=== PATIENT | male | born 1980 | race African-American/Black ===

== ENCOUNTER 2017-03-11 06:14 | Emergency (ER) | payer SELFPAY ==
[~2017-03-11] VITALS: Ht 175.3 cm; Wt 99.8 kg
--- NOTE | 2017-03-11 06:14 | NUR ---
PT PLACED IN BED 10.
--- NOTE | 2017-03-11 06:15 | NUR ---
Pt actively hallucinating via auditory. Pt talking to voices not present. Spontaneously and occasionally screaming out obscenities to voices. Pt is restless. Pt is not lashing out at staff, nor threatening staff. Pt is redirected with moderate effort. Instructing staff to approach pt in non-confrontational manor as not to escalate pt.
[2017-03-11 06:20] VITALS: BP 162/100
[2017-03-11] MEDS ORDERED: diphenhydrAMINE 50 MG/ML VIAL IM ONE ×2 (06:20→06:40)
[2017-03-11] MEDS ORDERED: HALOPERIDOL IM 5 MG/ML VIAL IM ONE (06:20)
[2017-03-11] MEDS ORDERED: diphenhydrAMINE 50 MG/ML VIAL ONE (06:32)
[2017-03-11] MEDS ORDERED: HALOPERIDOL IM 5 MG/ML VIAL ONE (06:33)
--- NOTE | 2017-03-11 07:20 | NUR ---
PT STAYING IN BED, BEDSIDE MONITOR SHOWS ST, NO S/S OF RESPIRATORY DISTRESS NOTED. PT MUMBLING ALL THE TIME, ASKED PT " WHAT ARE YOU SAYING?" PT DOES NOT ANSWER.
[2017-03-11 08:12] LABS: BASOPHILS # (AUTO) 0.1 K/uL (0.00-0.22); BASOPHILS % (AUTO) 1.7 % (0.0-2.0); EOSINOPHILS % (AUTO) 0.2 % (0.0-4.0); HEMATOCRIT 44.1 % (36-52); HEMOGLOBIN 14.8 g/dL (12.0-18.0); LYMPHOCYTES # (AUTO) 0.6 K/uL (2.0-11.5); LYMPHOCYTES % (AUTO) 10.3 % (20.5-51.1); MEAN CORPUSCULAR HEMOGLOBIN 29 pg (27-31); MEAN CORPUSCULAR HGB CONC 34 g/dL (33-37); MEAN CORPUSCULAR VOLUME 85 fL (80-94); MONOCYTES # (AUTO) 0.4 K/uL (0.8-1.0); MONOCYTES % (AUTO) 6.3 % (1.7-9.3); NEUTROPHILS # (AUTO) 4.6 K/uL (1.8-7.7); NEUTROPHILS % (AUTO) 81.5 % (42.2-75.2); PLATELET COUNT (AUTO) 273 K/uL (140-450); RED CELL DISTRIBUTION WIDTH 12.4 % (11.6-13.7); WHITE BLOOD COUNT (AUTO) 5.7 K/uL (4.8-10.8)
[2017-03-11 08:27] LABS: BARBITURATE, URINE NEG. ng/ml (NEG <=200); BENZODIAZEPINE, URINE POS. ng/mL (NEG <=200); CANNABINOID, URINE NEG. ng/mL (NEG <=50); COCAINE, URINE NEG. ng/mL (NEG <=300); OPIATE, URINE NEG. ng/mL (NEG <=2000); PHENCYCLIDINE SCREEN,URINE NEG. ng/mL (NEG <=25)
--- NOTE | 2017-03-11 08:30 | NUR ---
PT SLEEPING IN BED, BEDSIDE MONITOR SHOWS SR AT THIS TIME. NO S/S OF RESPIRATORY DISTRESS NOTED.
[2017-03-11 08:31] LABS: PROTHROMBIN TIME 11.3 secs (10.8-13.4)
[2017-03-11 08:34] LABS: ALBUMIN 4.2 g/dL (3.4-5.0); ANION GAP 15.4 (8-16); ASPARTATE AMINOTRANSFERASE 37 U/L (15-37); CARBON DIOXIDE 22.7 mmol/L (21-32); CHLORIDE 104 mmol/L (98-107); GLUCOSE 119 mg/dL (74-106); POTASSIUM 3.1 mmol/L (3.5-5.1); SODIUM SERUM 139 mmol/L (136-145); TOTAL BILIRUBIN 0.5 mg/dL (0.0-1.0); UREA NITROGEN, BLOOD 8 mg/dL (7-18)
[2017-03-11 08:39] LABS: ACETAMINOPHEN < 0.5 ug/ml (10-30); SALICYLATE < 2.8 mg/dL (2.8-20.0)
[2017-03-11] MEDS ORDERED: POTASSIUM CHLORIDE 10 MEQ TABER PO ONE (08:55)
[2017-03-11 09:03] LABS: CREATININE 1.2 mg/dL (0.7-1.3); GFR ARICAN-AMERICAN 88 mL/min (>90)
[2017-03-11 09:15] VITALS: BP 140/90
--- NOTE | 2017-03-11 09:15 | NUR ---
Patient discharged with v/s stable. Written and verbal after care instructions given and explained. Patient alert, oriented and verbalized understanding of instructions. Ambulatory with steady gait. All questions addressed prior to discharge. ID band removed. Patient advised to follow up with PMD. Rx of VALIUM given. Patient educated on indication of medication including possible reaction and side effects. Opportunity to ask questions provided and answered.
== END 2017-03-11 09:15 | disposition home or self-care (01) ==
LOC: MED 06:14
DX: F41.0 Panic disorder [episodic paroxysmal anxiety] (principal); R03.0 Elevated blood-pressure reading, without diagnosis of hypertension
CPT/HCPCS: 80053; 80305; 85025; 85610; 93005; 96372; 99285; G0480; G0482; J1200; J1630

== ENCOUNTER 2023-09-04 22:17 | Inpatient (IN) | payer OTHER ==
[~2023-09-04] VITALS: Ht 185.4 cm; Wt 111.6 kg
[~2023-09-04 22:17] MED LIST: ATOR20TA40 PO; DILT120C95 PO; GLIP5TAB22 PO; LANTUS SUBQ; LISI10TA30 PO; METF-713 PO; POTA10TA70 PO
[2023-09-04 22:33] VITALS: BP 224/198; PULSE 129; RESP 14; TEMP 97.1; O2SAT 99
[2023-09-04 23:06] LABS: BASOPHILS % (AUTO) 0.8 % (0.0-2.0); EOSINOPHILS # (AUTO) 0.1 K/uL (0-0.4); EOSINOPHILS % (AUTO) 2.2 % (0.0-4.0); HEMATOCRIT 44.6 % (36-52); HEMOGLOBIN 15.7 g/dL (12.0-18.0); LYMPHOCYTES # (AUTO) 1.6 K/uL (2.0-11.5); LYMPHOCYTES % (AUTO) 29.6 % (20.5-51.1); MEAN CORPUSCULAR HEMOGLOBIN 30 pg (27-31); MEAN CORPUSCULAR HGB CONC 35 g/dL (33-37); MEAN CORPUSCULAR VOLUME 84.2 fL (80-94); MONOCYTES # (AUTO) 0.3 K/uL (0.8-1.0); MONOCYTES % (AUTO) 6.1 % (1.7-9.3); NEUTROPHILS # (AUTO) 3.3 K/uL (1.8-7.7); NEUTROPHILS % (AUTO) 61.3 % (42.2-75.2); PLATELET COUNT (AUTO) 221 K/uL (140-450); RED CELL DISTRIBUTION WIDTH 14.1 % (11.6-13.7); WHITE BLOOD COUNT (AUTO) 5.5 K/uL (4.8-10.8)
[2023-09-04] MEDS: NACL 0.9% 1,000 ML IV ONE ×2 (23:07→23:11)
[2023-09-04] MEDS: ONDANSETRON 4 MG/2 ML VIAL IVP ONE (23:07)
[2023-09-04] MEDS: CLONIDINE HYDROCHLORIDE 0.1 MG TAB PO ONE (23:07)
[2023-09-04 23:26] LABS: APPEARANCE,URINE CLEAR (CLEAR); BILIRUBIN,URINE NEGATIVE (NEGATIVE); BLOOD, URINE 1+ (NEGATIVE); COLOR,URINE YELLOW (YELLOW); LEUKOCYTE ESTERASE ,URINE NEGATIVE (NEGATIVE); NITRITE, URINE NEGATIVE (NEGATIVE); PH,URINE 5.5 (5.0-9.0); PROTEIN,URINE 1+ (NEGATIVE); UGLUCOSE 3+ (NEGATIVE); UROBILINOGEN,URINE 0.2 EU/dL (0.2 - 1)
[2023-09-04 23:31] LABS: BACTERIA,URINE 10-30 (MOD) /HPF (None Seen); MUCUS,URINE 1+ /LPF (None Seen); RBC,URINE 0-5 /HPF (0-5); SQUAMOUS EPITHELIAL CELL,UR 0-3 (FEW) /LPF (0-3 (FEW)); WBC,URINE 0-5 /HPF (0-5)
[2023-09-04 23:36] LABS: ALANINE AMINOTRANSFERASE 42 U/L (12-78); ALBUMIN 3.9 g/dL (3.4-5.0); ALKALINE PHOSPHATASE 102 U/L (50-136); ANION GAP 22.1 (8-16); ASPARTATE AMINOTRANSFERASE 15 U/L (15-37); CALCIUM 9.9 mg/dL (8.5-10.1); CARBON DIOXIDE 21.3 mmol/L (21-32); CHLORIDE 90 mmol/L (98-107); GFR ARICAN-AMERICAN 111 mL/min (>90); GFR NON ARICAN-AMERICAN 91 mL/min (>90); LIPASE 21 U/L (16-77); POTASSIUM 3.4 mmol/L (3.5-5.1); SODIUM SERUM 130 mmol/L (136-145); TOTAL BILIRUBIN 0.6 mg/dL (0.0-1.0); UREA NITROGEN, BLOOD 13 mg/dL (7-18)
[2023-09-04 23:45] LABS: GLUCOSE 498 mg/dL (74-106)
[2023-09-04] MEDS ORDERED: POTASSIUM CHLORIDE 10 MEQ TABER PO ONE (23:50)
[2023-09-04] MEDS ORDERED: cefTRIAXone 1,000 MG VIAL ONE (23:59)
[2023-09-05] MEDS ORDERED: CLONIDINE HYDROCHLORIDE 0.1 MG TAB PO ONE (00:15)
[2023-09-05] MEDS: POTASSIUM CHLORIDE 10 MEQ TABER PO ONE ×3 (00:17→23:39)
[2023-09-05] MEDS: NACL 0.9% 1,000 ML IV ONE (00:17)
[2023-09-05] MEDS: INSULIN REGULAR, HUMAN 100 UNIT/ML VIAL SUBQ ONE (00:22)
[2023-09-05] MEDS: KCL 20 MEQ IN 100 mL PREMIX 100 ML IV ONE (00:22)
[2023-09-05] MEDS ORDERED: CLONIDINE HYDROCHLORIDE 0.1 MG TAB ONE (01:03)
[2023-09-05 01:09] LABS: LACTIC ACID 1.1 mmol/L (0.4-2.0)
[2023-09-05] MEDS: INSULIN LANTUS 100 UNITS/ML 10 ML VIAL SUBQ SCH ×4 (01:40→23:41)
[2023-09-05] MEDS ORDERED: DEXTROSE 50% 50 ML SYR IVP PRN ×2 (01:40→17:25)
[2023-09-05 02:25] VITALS: BP 179/116; PULSE 101; PULSE 98; RESP 18; TEMP 97.4; O2SAT 98; O2SAT 99
[2023-09-05] MEDS: hydrALAZINE 20 MG/ML VIAL IVP SCH (02:38)
[2023-09-05] MEDS: BLOOD GLUCOSE MONITORING 1 DEV DEV FS SCH ×2 (02:43→21:53)
[2023-09-05] MEDS: INSULIN LISPRO SLIDING SCALE 100 UNITS/ML VIAL SUBQ PRN ×2 (02:48→20:44)
[2023-09-05] MEDS: NACL 0.9% 1,000 ML IV SCH (06:30)
[2023-09-05] MEDS: INSULIN LISPRO 100 UNITS/ML VIAL SUBQ SCH ×2 (06:51→14:01)
[2023-09-05 08:00] VITALS: BP 165/101; PULSE 105; RESP 18; RESP 20; TEMP 98.2; O2SAT 96
[2023-09-05] MEDS: ENOXAPARIN 40 MG/0.4 ML SYR SUBQ SCH (09:00)
[2023-09-05] MEDS ORDERED: INSULIN LANTUS 100 UNITS/ML 10 ML VIAL SUBQ SCH (11:55)
[2023-09-05 12:00] VITALS: BP 138/83; PULSE 114; RESP 20; TEMP 98; O2SAT 98
[2023-09-05 12:55] LABS: BASOPHILS % (AUTO) 0.4 % (0.0-2.0); EOSINOPHILS # (AUTO) 0.1 K/uL (0-0.4); EOSINOPHILS % (AUTO) 1.8 % (0.0-4.0); HEMATOCRIT 42.7 % (36-52); HEMOGLOBIN 14.7 g/dL (12.0-18.0); LYMPHOCYTES # (AUTO) 1.6 K/uL (2.0-11.5); LYMPHOCYTES % (AUTO) 20.8 % (20.5-51.1); MEAN CORPUSCULAR HEMOGLOBIN 29 pg (27-31); MEAN CORPUSCULAR HGB CONC 35 g/dL (33-37); MEAN CORPUSCULAR VOLUME 84.3 fL (80-94); MONOCYTES # (AUTO) 0.4 K/uL (0.8-1.0); MONOCYTES % (AUTO) 5.4 % (1.7-9.3); NEUTROPHILS # (AUTO) 5.4 K/uL (1.8-7.7); NEUTROPHILS % (AUTO) 71.6 % (42.2-75.2); PLATELET COUNT (AUTO) 219 K/uL (140-450); RED BLOOD CELL COUNT(AUTO) 5.06 MIL/uL (4.20-6.10); RED CELL DISTRIBUTION WIDTH 14.2 % (11.6-13.7); WHITE BLOOD COUNT (AUTO) 7.6 K/uL (4.8-10.8)
[2023-09-05 13:27] LABS: ALBUMIN 3.6 g/dL (3.4-5.0); ANION GAP 17.8 (8-16); CALCIUM 8.5 mg/dL (8.5-10.1); CARBON DIOXIDE 23.3 mmol/L (21-32); CREATININE 1.1 mg/dL (0.6-1.3); POTASSIUM 3.1 mmol/L (3.5-5.1); TOTAL BILIRUBIN 0.5 mg/dL (0.0-1.0); TOTAL PROTEIN, SERUM 7.4 g/dL (6.4-8.2)
[2023-09-05 15:10] LABS: BLOOD GAS BASE EXCESS -1.9 mmol/L (-2.0-2.0); BLOOD GAS HCO3 22.1 mmol/L (22-26); BLOOD GAS O2 SAT% 96.8 % (92.0-98.5); BLOOD GAS PCO2 35.7 mmHg (35-45); BLOOD GAS PO2 86.8 mmHg (75-100)
[2023-09-05 16:00] VITALS: BP 154/98; PULSE 110; RESP 20; TEMP 98.5; O2SAT 95
[2023-09-05 20:00] VITALS: BP 179/106; PULSE 105; PULSE 137; PULSE 141; RESP 20; TEMP 98.7; O2SAT 96
[2023-09-05] MEDS: hydrALAZINE 20 MG/ML VIAL IVP PRN (20:40)
[2023-09-05] MEDS: ACETAMINOPHEN 325 MG TAB PO PRN (23:38)
[2023-09-06] VITALS (8 sets, daily range): BP systolic 137–169; BP diastolic 72–105; PULSE 98–137; RESP 18–20; TEMP 98.1–100.4; O2SAT 96–99
[2023-09-06] MEDS: ONDANSETRON 4 MG/2 ML VIAL IVP PRN (06:32)
[2023-09-06 07:14] LABS: BASOPHILS % (AUTO) 0.4 % (0.0-2.0); EOSINOPHILS % (AUTO) 0.4 % (0.0-4.0); HEMATOCRIT 43.3 % (36-52); HEMOGLOBIN 14.8 g/dL (12.0-18.0); LYMPHOCYTES # (AUTO) 1.9 K/uL (2.0-11.5); MEAN CORPUSCULAR HEMOGLOBIN 29 pg (27-31); MEAN CORPUSCULAR HGB CONC 34 g/dL (33-37); MEAN CORPUSCULAR VOLUME 85.5 fL (80-94); MONOCYTES # (AUTO) 0.6 K/uL (0.8-1.0); NEUTROPHILS # (AUTO) 7.3 K/uL (1.8-7.7); NEUTROPHILS % (AUTO) 74.2 % (42.2-75.2); PLATELET COUNT (AUTO) 221 K/uL (140-450); RED BLOOD CELL COUNT(AUTO) 5.06 MIL/uL (4.20-6.10); RED CELL DISTRIBUTION WIDTH 14.4 % (11.6-13.7); WHITE BLOOD COUNT (AUTO) 9.8 K/uL (4.8-10.8)
[2023-09-06 07:57] LABS: ALBUMIN 3.4 g/dL (3.4-5.0); ANION GAP 23.5 (8-16); CALCIUM 8.6 mg/dL (8.5-10.1); CARBON DIOXIDE 16.9 mmol/L (21-32); CREATININE 0.9 mg/dL (0.6-1.3); MAGNESIUM 1.8 mg/dL (1.8-2.4); PHOSPHORUS 2.4 mg/dL (2.5-4.9); POTASSIUM 3.4 mmol/L (3.5-5.1); TOTAL BILIRUBIN 0.6 mg/dL (0.0-1.0); TOTAL PROTEIN, SERUM 7.4 g/dL (6.4-8.2)
[2023-09-06] MEDS: LOSARTAN 25 MG TAB PO SCH (09:30)
[2023-09-06] MEDS: PANTOPRAZOLE 40 MG INJ VIAL IVP SCH (09:30)
[2023-09-06] MEDS: INSULIN LANTUS 100 UNITS/ML 10 ML VIAL SUBQ SCH ×3 (09:36→20:33)
[2023-09-06 20:25] LABS: BLOOD GAS PCO2 33.4 mmHg (35-45); BLOOD GAS PH 7.395 (7.35-7.45); BLOOD GAS PO2 81.7 mmHg (75-100)
[2023-09-07 00:12] VITALS: BP 169/105; PULSE 124; RESP 18; TEMP 98.1; O2SAT 96
[2023-09-07] MEDS: INSULIN LANTUS 100 UNITS/ML 10 ML VIAL SUBQ ONE (00:23)
[2023-09-07 07:03] LABS: BASOPHILS % (AUTO) 0.5 % (0.0-2.0); EOSINOPHILS # (AUTO) 0.2 K/uL (0-0.4); EOSINOPHILS % (AUTO) 2.9 % (0.0-4.0); HEMATOCRIT 38.3 % (36-52); LYMPHOCYTES # (AUTO) 2.1 K/uL (2.0-11.5); MEAN CORPUSCULAR HEMOGLOBIN 29 pg (27-31); MEAN CORPUSCULAR HGB CONC 34 g/dL (33-37); MEAN CORPUSCULAR VOLUME 85.3 fL (80-94); MONOCYTES # (AUTO) 0.4 K/uL (0.8-1.0); MONOCYTES % (AUTO) 7.2 % (1.7-9.3); NEUTROPHILS # (AUTO) 2.8 K/uL (1.8-7.7); NEUTROPHILS % (AUTO) 51.4 % (42.2-75.2); PLATELET COUNT (AUTO) 202 K/uL (140-450); RED BLOOD CELL COUNT(AUTO) 4.49 MIL/uL (4.20-6.10); RED CELL DISTRIBUTION WIDTH 14.3 % (11.6-13.7); WHITE BLOOD COUNT (AUTO) 5.5 K/uL (4.8-10.8)
[2023-09-07 08:00] VITALS: BP 192/133; PULSE 108; RESP 18; TEMP 97.7; O2SAT 98
[2023-09-07 08:17] LABS: ALBUMIN 2.9 g/dL (3.4-5.0); ANION GAP 15.9 (8-16); CALCIUM 8.7 mg/dL (8.5-10.1); CARBON DIOXIDE 20.2 mmol/L (21-32); CREATININE 0.9 mg/dL (0.6-1.3); POTASSIUM 3.1 mmol/L (3.5-5.1); TOTAL BILIRUBIN 0.4 mg/dL (0.0-1.0)
[2023-09-07] MEDS: INSULIN LANTUS 100 UNITS/ML 10 ML VIAL SUBQ SCH ×2 (10:27→20:16)
[2023-09-07] MEDS: INSULIN LISPRO 100 UNITS/ML VIAL SUBQ SCH (10:28)
[2023-09-07 10:47] LABS: TOTAL PROTEIN, SERUM 6.4 g/dL (6.4-8.2)
[2023-09-07] MEDS: KCL 20 MEQ IN 100 mL PREMIX 200 ML IV SCH (12:41)
[2023-09-07 16:00] VITALS: BP 111/70; PULSE 124; RESP 16; TEMP 98.1; O2SAT 95
[2023-09-07 18:00] VITALS: BP 146/94; PULSE 124; RESP 20; TEMP 98.2; O2SAT 97
[2023-09-07] MEDS: BLOOD GLUCOSE MONITORING 1 DEV DEV FS SCH (18:09)
[2023-09-07 20:00] VITALS: BP 146/94; PULSE 120; RESP 24; TEMP 98.6; O2SAT 97
[2023-09-07 22:00] VITALS: BP 156/100; PULSE 115; RESP 26; O2SAT 95
[2023-09-07] MEDS: MORPHINE SULFATE 4 MG/ML SYR IVP PRN (23:49)
[2023-09-08] VITALS (16 sets, daily range): BP systolic 148–180; BP diastolic 89–120; PULSE 93–128; RESP 20–24; TEMP 97.7–99.1; O2SAT 93–95
[2023-09-08 05:38] LABS: BASOPHILS % (AUTO) 0.5 % (0.0-2.0); EOSINOPHILS % (AUTO) 0.1 % (0.0-4.0); HEMATOCRIT 41.7 % (36-52); HEMOGLOBIN 14.1 g/dL (12.0-18.0); LYMPHOCYTES # (AUTO) 1.1 K/uL (2.0-11.5); LYMPHOCYTES % (AUTO) 20.9 % (20.5-51.1); MEAN CORPUSCULAR HEMOGLOBIN 29 pg (27-31); MEAN CORPUSCULAR HGB CONC 34 g/dL (33-37); MEAN CORPUSCULAR VOLUME 86.2 fL (80-94); MONOCYTES # (AUTO) 0.3 K/uL (0.8-1.0); NEUTROPHILS # (AUTO) 3.9 K/uL (1.8-7.7); NEUTROPHILS % (AUTO) 72.5 % (42.2-75.2); PLATELET COUNT (AUTO) 219 K/uL (140-450); RED BLOOD CELL COUNT(AUTO) 4.84 MIL/uL (4.20-6.10); RED CELL DISTRIBUTION WIDTH 14.7 % (11.6-13.7); WHITE BLOOD COUNT (AUTO) 5.4 K/uL (4.8-10.8)
[2023-09-08 06:13] LABS: ALBUMIN 3.1 g/dL (3.4-5.0); ANION GAP 14.5 (8-16); CALCIUM 8.7 mg/dL (8.5-10.1); CREATININE 0.7 mg/dL (0.6-1.3); POTASSIUM 3.5 mmol/L (3.5-5.1); TOTAL BILIRUBIN 0.4 mg/dL (0.0-1.0)
[2023-09-08] MEDS: HYDROcodone/APAP 5/325 MG 1 TAB TAB PO PRN (08:33)
[2023-09-08] MEDS ORDERED: METOPROLOL 5 MG/5 ML VIAL IV SCH (09:00)
[2023-09-08] MEDS: METOPROLOL 50 MG TAB PO SCH (09:54)
[2023-09-08] MEDS: METOCLOPRAMIDE 10 MG/2 ML INJ VIAL IVP SCH ×2 (12:20→17:59)
[2023-09-08] MEDS: amLODIPine 5 MG TAB PO SCH (13:03)
[2023-09-08] MEDS: NACL 0.9% 1,000 ML IV SCH (15:00)
[2023-09-08] MEDS: BLOOD GLUCOSE MONITORING 1 DEV DEV FS SCH (16:41)
[2023-09-08 17:19] LABS: BLOOD GAS PCO2 29.1 mmHg (35-45); BLOOD GAS PH 7.384 (7.35-7.45)
[2023-09-08 17:20] LABS: BLOOD GAS BASE EXCESS -6.6 mmol/L (-2.0-2.0); BLOOD GAS O2 SAT% 95.9 % (92.0-98.5); BLOOD GAS PO2 82.3 mmHg (75-100)
[2023-09-08] MEDS: METOPROLOL 5 MG/5 ML VIAL IV SCH (18:00)
[2023-09-08] MEDS: CLONIDINE HYDROCHLORIDE 0.1 MG TAB PO SCH (20:01)
[2023-09-09] VITALS (12 sets, daily range): BP systolic 136–169; BP diastolic 70–111; PULSE 96–127; RESP 18–24; TEMP 98.2–98.9; O2SAT 93–97
[2023-09-09] MEDS: LOSARTAN 50 MG TAB PO SCH (01:47)
[2023-09-09 06:19] LABS: BASOPHILS % (AUTO) 0.4 % (0.0-2.0); EOSINOPHILS % (AUTO) 0.8 % (0.0-4.0); HEMATOCRIT 39.8 % (36-52); HEMOGLOBIN 13.7 g/dL (12.0-18.0); LYMPHOCYTES # (AUTO) 1.6 K/uL (2.0-11.5); LYMPHOCYTES % (AUTO) 27.4 % (20.5-51.1); MEAN CORPUSCULAR HEMOGLOBIN 29 pg (27-31); MEAN CORPUSCULAR HGB CONC 34 g/dL (33-37); MEAN CORPUSCULAR VOLUME 84.3 fL (80-94); MONOCYTES # (AUTO) 0.5 K/uL (0.8-1.0); MONOCYTES % (AUTO) 8.4 % (1.7-9.3); NEUTROPHILS # (AUTO) 3.7 K/uL (1.8-7.7); PLATELET COUNT (AUTO) 222 K/uL (140-450); RED BLOOD CELL COUNT(AUTO) 4.72 MIL/uL (4.20-6.10); RED CELL DISTRIBUTION WIDTH 14.7 % (11.6-13.7); WHITE BLOOD COUNT (AUTO) 5.9 K/uL (4.8-10.8)
[2023-09-09 06:44] LABS: ALBUMIN 3.1 g/dL (3.4-5.0); ANION GAP 15.5 (8-16); CALCIUM 8.2 mg/dL (8.5-10.1); CARBON DIOXIDE 22.6 mmol/L (21-32); CREATININE 0.7 mg/dL (0.6-1.3); POTASSIUM 3.1 mmol/L (3.5-5.1); TOTAL BILIRUBIN 0.5 mg/dL (0.0-1.0); TOTAL PROTEIN, SERUM 6.8 g/dL (6.4-8.2)
[2023-09-09] MEDS: INSULIN LANTUS 100 UNITS/ML 10 ML VIAL SUBQ SCH (08:47)
[2023-09-09] MEDS: POTASSIUM CHLORIDE 40 MEQ, LIDOCAINE 1% 25 MG in NACL 0.9% 250 ML IV ONE (10:18)
[2023-09-09] MEDS: AMPICILLIN/SULBACTAM 1.5 GM in NACL 0.9% 50 ML IV SCH (12:53)
[2023-09-09] MEDS ORDERED: METOPROLOL 5 MG/5 ML VIAL IV PRN (15:30)
[2023-09-09] MEDS: hydrALAZINE 25 MG TAB PO SCH (21:09)
[2023-09-10] VITALS (7 sets, daily range): BP systolic 135–166; BP diastolic 73–102; PULSE 101–125; RESP 18–20; TEMP 97.7–99.1; O2SAT 94–97
[2023-09-10 06:16] LABS: BASOPHILS % (AUTO) 0.2 % (0.0-2.0); EOSINOPHILS # (AUTO) 0.1 K/uL (0-0.4); EOSINOPHILS % (AUTO) 1.8 % (0.0-4.0); HEMATOCRIT 40.1 % (36-52); HEMOGLOBIN 13.9 g/dL (12.0-18.0); LYMPHOCYTES # (AUTO) 1.8 K/uL (2.0-11.5); LYMPHOCYTES % (AUTO) 29.8 % (20.5-51.1); MEAN CORPUSCULAR HEMOGLOBIN 29 pg (27-31); MEAN CORPUSCULAR HGB CONC 35 g/dL (33-37); MEAN CORPUSCULAR VOLUME 83.8 fL (80-94); MONOCYTES # (AUTO) 0.6 K/uL (0.8-1.0); MONOCYTES % (AUTO) 9.4 % (1.7-9.3); NEUTROPHILS # (AUTO) 3.5 K/uL (1.8-7.7); NEUTROPHILS % (AUTO) 58.8 % (42.2-75.2); PLATELET COUNT (AUTO) 219 K/uL (140-450); RED BLOOD CELL COUNT(AUTO) 4.78 MIL/uL (4.20-6.10); RED CELL DISTRIBUTION WIDTH 14.8 % (11.6-13.7)
[2023-09-10 06:20] LABS: ANION GAP 13.6 (8-16); CALCIUM 8.2 mg/dL (8.5-10.1); CARBON DIOXIDE 25.4 mmol/L (21-32); CREATININE 0.7 mg/dL (0.6-1.3); TOTAL BILIRUBIN 0.6 mg/dL (0.0-1.0); TOTAL PROTEIN, SERUM 6.8 g/dL (6.4-8.2)
[2023-09-10] MEDS: POTASSIUM CHLORIDE 10 MEQ TABER PO PRN (08:54)
[2023-09-11] VITALS: BP 136/82; PULSE 102; RESP 18; TEMP 97.6; O2SAT 97
[2023-09-11 04:00] VITALS: BP 146/90; PULSE 102; RESP 16; TEMP 97.4; O2SAT 97
[2023-09-11 05:50] LABS: AMPHETAMINE, URINE NEGATIVE ng/ml (NEG <=1000); BARBITURATE, URINE NEGATIVE ng/ml (NEG <=200); BENZODIAZEPINE, URINE NEGATIVE ng/mL (NEG <=200); CANNABINOID, URINE NEGATIVE ng/mL (NEG <=50); COCAINE, URINE NEGATIVE ng/mL (NEG <=300); OPIATE, URINE NEGATIVE ng/mL (NEG <=2000); PHENCYCLIDINE SCREEN,URINE NEGATIVE ng/mL (NEG <=25)
[2023-09-11 07:09] LABS: BASOPHILS % (AUTO) 0.8 % (0.0-2.0); EOSINOPHILS # (AUTO) 0.2 K/uL (0-0.4); EOSINOPHILS % (AUTO) 3.9 % (0.0-4.0); HEMATOCRIT 39.4 % (36-52); HEMOGLOBIN 13.5 g/dL (12.0-18.0); MEAN CORPUSCULAR HEMOGLOBIN 29 pg (27-31); MEAN CORPUSCULAR HGB CONC 34 g/dL (33-37); MEAN CORPUSCULAR VOLUME 84.7 fL (80-94); MONOCYTES # (AUTO) 0.5 K/uL (0.8-1.0); MONOCYTES % (AUTO) 10.2 % (1.7-9.3); NEUTROPHILS # (AUTO) 2.2 K/uL (1.8-7.7); NEUTROPHILS % (AUTO) 44.1 % (42.2-75.2); PLATELET COUNT (AUTO) 217 K/uL (140-450); RED BLOOD CELL COUNT(AUTO) 4.66 MIL/uL (4.20-6.10); RED CELL DISTRIBUTION WIDTH 14.6 % (11.6-13.7)
[2023-09-11 07:27] LABS: ALBUMIN 2.8 g/dL (3.4-5.0); ANION GAP 10.4 (8-16); CARBON DIOXIDE 28.6 mmol/L (21-32); CREATININE 0.8 mg/dL (0.6-1.3); TOTAL BILIRUBIN 0.6 mg/dL (0.0-1.0); TOTAL PROTEIN, SERUM 6.4 g/dL (6.4-8.2)
[2023-09-11 08:00] VITALS: BP 151/92; PULSE 107; PULSE 110; RESP 16; TEMP 97.9; O2SAT 97
[2023-09-11] MEDS: METOPROLOL 50 MG TAB PO SCH (11:55)
[2023-09-11 12:00] VITALS: BP 149/88; PULSE 103; RESP 17; TEMP 97.7; O2SAT 96
[2023-09-11] MEDS ORDERED: DILT120C95 PO (14:30)
[2023-09-11] MEDS ORDERED: AMLO-3 PO (14:30)
[2023-09-11] MEDS ORDERED: INSU100S22 SUBQ (14:30)
[2023-09-11] MEDS ORDERED: INSU-656 SUBQ (14:30)
[2023-09-11] MEDS ORDERED: LOSA-270 PO (14:30)
[2023-09-11] MEDS ORDERED: HYDR-5856 PO (14:43)
[2023-09-11] MEDS ORDERED: METOPROLOL 50 MG TAB PO SCH (21:00)
[2023-09-12 09:06] LABS: THYROID PEROXIDASE (TPO) AB 10 IU/mL (0-34)
== END 2023-09-11 17:25 | disposition home or self-care (01) | DRG 637 ==
LOC: MED 22:17 → MTU 09-05 01:34 → MIC 09-07 17:10 → MTU 09-10 03:03
PROVIDERS: ADMIT Student in an Organized Health Care Education/Training Program; ATTEND Student in an Organized Health Care Education/Training Program
DX: E11.65 Type 2 diabetes mellitus with hyperglycemia (principal); E11.10 Type 2 diabetes mellitus with ketoacidosis without coma; I16.1 Hypertensive emergency; R65.10 Systemic inflammatory response syndrome (SIRS) of non-infectious origin without acute organ dysfunction; E11.43 Type 2 diabetes mellitus with diabetic autonomic (poly)neuropathy; E87.6 Hypokalemia; E66.01 Morbid (severe) obesity due to excess calories; E87.70 Fluid overload, unspecified; E86.0 Dehydration; E87.5 Hyperkalemia; K31.84 Gastroparesis; R00.1 Bradycardia, unspecified; I10 Essential (primary) hypertension; Z68.32 Body mass index [BMI] 32.0-32.9, adult; Z79.4 Long term (current) use of insulin
CPT/HCPCS: 36415; 36600; 70450; 71045; 74150; 80053; 80305; 81001; 82803; 82948; 83036; 83605; 83690; 83735; 83880; 84100; 84436; 84443; 84479; 84484; 85025; 86376; 86800; 87040; 87081; 87086; 93005; 96361; 96372; 96374; 96375; 99291; C9113; J0295; J0360; J0696; J1650; J1815; J2001; J2270; J2405; J2765; J3480; J3490; J7030; Q0092